=== PATIENT | female | born 2000 | race Asian ===

== ENCOUNTER 2023-05-30 22:19 | Emergency (ER) | payer SELFPAY ==
[2023-05-30 23:09] VITALS: BP 112/74; PULSE 85; RESP 18; TEMP 36.7; O2SAT 99; BMI 25.4
--- NOTE | 2023-05-30 23:28 | ED.WOUNDLAC ---
HPI - Wound/Laceration General Chief Complaint: Laceration/Wound Stated Complaint: Right arm cut Time Seen by Provider: 05/30/23 23:05 History of Present Illness HPI narrative: This 22-year-old female comes in with a laceration to her right wrist. She was pushing on a piece of glass and it broke causing a stellate type laceration on the volar aspect of her right wrist. Her tetanus status is up-to-date. She has normal tendon function and nerve function of her right upper extremity. Related Data Home Medications Medication Instructions Recorded Confirmed No Known Home Medications 05/30/23 05/30/23 Allergies Allergy/AdvReac Type Severity Reaction Status Date / Time No Known Drug Allergies Allergy Verified 05/30/23 23:12 Review of Systems Status of ROS: Reports: 10 or more systems reviewed and unremarkable except as noted in History and below Narrative: Constitutional: No fevers, no weight gain or loss. Eyes: No discharge. No vision changes. HENT: No congestion, no sore throat, no ear pain. Cardiovascular: No chest pain, no palpitations. Respiratory: No shortness of breath, no wheezes, no cough. Gastrointestinal: No abdominal pain, no vomiting, no diarrhea. Genitourinary: No dysuria, no hematuria. Musculoskeletal: Normal range of motion. Skin: No rashes, no pruritis. Neurological: No dizziness, weakness, sensory change, speech change. Endo/Heme/Allergies: No bruising or bleeding. No polydipsia. Pysch: no suicidality, no anxiety, no insomnia. All other systems reviewed and are negative. Exam Narrative: Exam Narrative: Constitutional: Well-developed, well-nourished, no acute distress. HEENT: Normocephalic, atraumatic. Neck: Normal range of motion. Nontender. Supple. Heart: Intact distal pulses. Lungs: No chest discomfort. No wheezes, rhonchi, or rales. Abdomen: Nontender. Back: Normal range of motion. Extremities: Normal range of motion. Skin: No rash. Warm. No erythema or pallor. Right wrist has a stellate type irregular laceration that totals approximately 7 cm in length. Neurologic: No altered sensation. No weakness. Alert and oriented. Psychiatric: No suicidality. No anxiety or depression. No insomnia. Nursing notes and vitals signs are reviewed. Const: Vital Signs, click to edit/add: Vital Signs - 24 hr 05/30/23 23:09 Temperature 98.1 F Pulse Rate [Right Pulse Oximeter] 85 Respiratory Rate 18 Blood Pressure [Le ft Upper Arm] 112/74 Pulse Oximetry 99 Oxygen Delivery Me thod Room Air Course Vital Signs Vital signs: Initial Vital Signs Temperature 98.1 F 05/30/23 23:09 Temperature Source Temporal Artery Scan 05/30/23 23:09 Pulse Rate 85 05/30/23 23:09 Respiratory Rate 18 05/30/23 23:09 Blood Pressure 112/74 05/30/23 23:09 Blood Pressure Mean 86 05/30/23 23:09 Blood Pressure Position Sitting 05/30/23 23:09 Pulse Oximetry 99 05/30/23 23:09 Oxygen Delivery Method Room Air 05/30/23 23:09 Vital Signs Temperature 98.1 F 05/30/23 23:09 Pulse Rate 85 05/30/23 23:09 Respiratory Rate 18 05/30/23 23:09 Blood Pressure 112/74 05/30/23 23:09 Pulse Oximetry 99 05/30/23 23:09 Oxygen Delivery Method Room Air 05/30/23 23:09 Temperature 98.1 F 05/30/23 23:09 Pulse Rate 85 05/30/23 23:09 Respiratory Rate 18 05/30/23 23:09 Blood Pressure 112/74 05/30/23 23:09 Pulse Oximetry 99 05/30/23 23:09 Oxygen Delivery Method Room Air 05/30/23 23:09 MDM - Wound/Laceration MDM Narrative Medical decision making narrative: This patient has a laceration on her right wrist that requires suture repair. After anesthesia with 1% lidocaine with epinephrine I placed 7 sutures to approximate the wound edges. This was done by placing the sutures in interrupted fashion and using 4.0 Ethilon suture. Instructions were given regarding wound care and the need for suture removal in 7-10 days. Discharge Plan Discharge Clinical Impression: Laceration Patient Disposition: Home, Self-Care Condition: Improved Additional Instructions: Keep wound clean and dry. Follow up with clinic or urgent care in 7-10 days for suture removal. Return if worsening. Prescriptions: No Action No Known Home Medications [facility] Info Instructions
[2023-05-31 00:09] VITALS: BP 113/68; PULSE 85; RESP 18; TEMP 36.7; O2SAT 99
== END 2023-05-30 23:59 | disposition home or self-care (01) ==
LOC: ED 23:55
PROVIDERS: Emergency Provider Emergency Medicine Emergency Medical Services
DX: S61.511A Laceration without foreign body of right wrist, initial encounter (principal); W25.XXXA Contact with sharp glass, initial encounter
CPT/HCPCS: 12002; 99283; 99284